=== PATIENT | male | born 1970 | race Caucasian/White ===

== ENCOUNTER → 2017-04-21 | Outpatient (CLI) | payer BC | LOC: GMA 11:05 | PROVIDERS: ATTEND Family Medicine | DX: M10.9 Gout, unspecified (principal) ==

== ENCOUNTER → 2018-05-20 | Outpatient (CLI) | payer BC | LOC: GMA 10:35 | PROVIDERS: ATTEND Family Medicine | DX: M10.9 Gout, unspecified (principal) ==

== ENCOUNTER → 2019-07-20 | Outpatient (CLI) | payer BC | LOC: GMAJ 16:59 | PROVIDERS: ATTEND Family Medicine | DX: M10.9 Gout, unspecified (principal); I10 Essential (primary) hypertension ==

== ENCOUNTER → 2020-02-29 | Outpatient (CLI) | payer BC | LOC: GMAJ 14:06 | PROVIDERS: ATTEND Family Medicine | DX: R53.83 Other fatigue (principal); M10.00 Idiopathic gout, unspecified site; I10 Essential (primary) hypertension ==